=== PATIENT | female | born 1990 | race Caucasian/White ===

== ENCOUNTER → 2016-09-30 | Outpatient (CLI) | payer BC ==
[~2016-09-30] MED LIST: ACET-2723 PO; DOCU-168 PO; FERR-70 PO; IBUP-1547 PO; MAG DELAY64 M1 PO; POTA20TA10 PO
[2016-09-30 10:55] LABS: ANION GAP 15 MEQ/L (5-15); BUN/CREATININE RATIO 20 RATIO (6-26); CALCIUM 9.6 MG/DL (8.4-10.2); CHLORIDE 101 MEQ/L (98-107); CO2 - CARBON DIOXIDE 28 MEQ/L (22-30); CREATININE 0.7 MG/DL (0.7-1.2); GLOMERULAR FILTRATION RATE 103; GLUCOSE 115 MG/DL (65-110); MAGNESIUM 1.8 MG/DL (1.6-2.3); PHOSPHORUS 3.8 MG/DL (2.5-4.5); SODIUM 144 MEQ/L (134-144)
[2016-09-30 11:14] LABS: POTASSIUM 2.8 MEQ/L (3.6-5)
== END ==
LOC: LAB 10:30
PROVIDERS: ATTEND Specialist
DX: E87.6 Hypokalemia (principal)
CPT/HCPCS: 36415; 80069; 83735